=== PATIENT | female | born 1955 | race Caucasian/White ===

== ENCOUNTER 2016-10-29 05:24 | Day surgery (SDC) | payer OTHER ==
[~2016-10-29] VITALS: Ht 162.6 cm; Wt 106.8 kg
[~2016-10-29 05:24] MED LIST: B-COMPLEX-VITA1 EACH PO; GLUCOPHAGE1000 MG PO; LISINOPRIL5 MG PO; LORCET 5-325 M1 EACH PO; MORGIDOX100 MG PO; PROBIOTIC1 EAC1 PO; ULTRAM50 MG PO; VITAMIN D31000 UNI2 PO
[2016-10-29 11:54] VITALS: BP 130/72
[2016-10-29 12:38] LABS: POINT-OF-CARE METER ID UU14174212
[2016-10-29 17:23] LABS: POINT-OF-CARE METER ID UU13113675
[2016-10-29 19:43] VITALS: BP 162/77
[2016-10-29 20:00] VITALS: BP 129/62; BP 16/77
[2016-10-30 00:14] VITALS: BP 130/72
[2016-10-30 04:00] VITALS: BP 133/65
[2016-10-30 04:30] VITALS: BP 133/65
[2016-10-30 08:00] VITALS: BP 133/73
[2016-10-30] MEDS ORDERED: CYCLOBENZAPRINE10 MG PO (08:30)
[2016-10-30] MEDS ORDERED: HYDROCODON-ACE1 EAC7 PO (08:30)
== END 2016-10-30 10:37 | disposition home or self-care (01) ==
LOC: SDC 05:24 → 2SOUTH 16:38 → 3EAST 19:14
PROVIDERS: Neurological Surgery
DX: M50.13 Cervical disc disorder with radiculopathy, cervicothoracic region (principal); I10 Essential (primary) hypertension; E11.9 Type 2 diabetes mellitus without complications; M48.02 Spinal stenosis, cervical region
CPT/HCPCS: 72040; 76000; 82948; C1713; G0378; J0131; J0330; J0690; J1100; J1170; J2250; J2405; J2710; J2765; J3010; J3480